=== PATIENT | male | born 1975 | race Caucasian/White ===

== ENCOUNTER 2018-03-22 04:14 | Emergency (ER) | payer OTHER ==
[2018-03-22 04:29] VITALS: RESP 20; O2SAT 98
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
[2018-03-22 06:39] VITALS: BP 141/93; PULSE 78; TEMP 97
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
== END 2018-03-22 07:20 | disposition left against medical advice (07) ==
LOC: C.ER 04:14
DX: S02.2XXA Fracture of nasal bones, initial encounter for closed fracture (principal); S62.337A Displaced fracture of neck of fifth metacarpal bone, left hand, initial encounter for closed fracture; Y04.0XXA Assault by unarmed brawl or fight, initial encounter

== ENCOUNTER 2018-03-23 09:32 | Emergency (ER) | payer OTHER ==
[2018-03-23 09:42] VITALS: O2SAT 98
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
[2018-03-23] MEDS ORDERED: Oxycodone/Acetaminophen 5/325 mg Tab PO STA (11:02)
[2018-03-23] MEDS ORDERED: Oxycodone/Acetaminophen 5/325 mg Tab ONE (11:09)
[2018-03-23 11:21] VITALS: BP 138/84; PULSE 87; RESP 18; TEMP 98.6
== END 2018-03-23 11:21 | disposition home or self-care (01) ==
LOC: C.ER 09:32
DX: S62.339A Displaced fracture of neck of unspecified metacarpal bone, initial encounter for closed fracture (principal); X58.XXXA Exposure to other specified factors, initial encounter

== ENCOUNTER 2018-04-07 08:26 | Day surgery (SDC) | payer SELFPAY ==
[2018-04-03 14:12] VITALS: BMI 21.8
[2018-04-07] MEDS ORDERED: Propofol 10 mg/ml Inj (20 ML) ONE ×2 (11:06→12:26)
[2018-04-07] MEDS ORDERED: Midazolam 2 MG/2 ML VIAL ONE ×3 (11:08→12:41)
[2018-04-07] MEDS ORDERED: Bupivacaine HCl 0.5% PF (30 ml) Inj ONE (11:13)
[2018-04-07] MEDS ORDERED: Lidocaine 1% 20 MG/2 ML PF AMP ONE (11:13)
[2018-04-07] MEDS ORDERED: ceFAZolin 1 gm in NS 1 GM/100 ML BAG IVPB ONE (11:13)
[2018-04-07] MEDS ORDERED: HYDROmorphone 0.5 mg/0.5 ml ISec IVP PRN (13:17)
--- NOTE | 2018-04-07 13:44 | PCM.SURG1 ---
Surgeon's Initial Post Op Note - Surgeon's Notes Surgeon: Dr. Licea Supervisor Whipped Topping: Maria Guadalupe SINGHY2, Holly TILLEY Type of Anesthesia: Block Regional, IV Sedation Anesthesia Administered By: Joselyn DANIEL Pre-Operative Diagnosis: L 5th metacarpal fracture Operative Findings: L 5th metacarpal fracture Post-Operative Diagnosis: L 5th metacarpal fracture Operation Performed: K-wire fixation of L 5th metacarpal fracture Specimen/Specimens Removed: N/A Estimated Blood Loss: EBL {In ML}: 5 Blood Products Given: N/A Drains Used: No Drains Post-Op Condition: Good Date of Surgery/Procedure: 04/07/18 Time of Surgery/Procedure: 13:44
[2018-04-07 16:15] VITALS: TEMP 97.8; O2SAT 96
[2018-04-07 17:04] VITALS: BP 114/73; PULSE 77; RESP 20
--- NOTE | 2018-04-21 05:01 | OP ---
PROCEDURE DATE: 04/07/2018 SURGEON: Tiny Licea MD LAPEL PADDER: Luis Lerma DO, PGY-2 PREOPERATIVE DIAGNOSIS: Right small finger metacarpal neck/shaft fracture. POSTOPERATIVE DIAGNOSIS: Right small finger metacarpal neck/shaft fracture. TYPE OF ANESTHESIA: Block by operating surgeon and sedation. COUNTS: Lap, sponge, needle counts were correct at the end of the case. CONDITION: The patient was stable upon discharge to recovery. PROCEDURE: Closed reduction and K-wire fixation of left small finger metacarpal neck/shaft fracture. INDICATIONS FOR SURGERY: The patient is a 43-year-old male with a metacarpal neck fracture which borders on the neck/shaft level making it unstable. Attempts of reduction in the office and repositioning were attempted. Position did improve somewhat after the manipulation; however, not enough, and decision was made with the patient to go to operating room for more formal repositioning of the fracture. DESCRIPTION OF PROCEDURE: The patient was identified in the holding area. The left arm was marked. He was then brought into the operating room and laid supine on the operating room table. Once sedation was provided, the left wrist was blocked using 10 mL of 1% lidocaine and 0.5% Marcaine in a 50:50 mixture. The median nerve, radial nerve, ulnar sensory, and ulnar nerves were blocked at the wrist. The arm was then prepped and draped in a usual sterile fashion. Without inflating the tourniquet or exsanguination, the fracture was manipulated in order to bring it up to length. Then using intraoperative fluoroscopy, K-wires were placed across the metacarpal head into the ring finger metacarpal head as well as some of the metacarpal head into the small finger metacarpal shaft. The position was checked in all three views, and once adequate, the K-wires were bent, trimmed, and capped with Jurgan balls. The small finger was then wrapped with Xeroform around the pin site. 4 x 4 gauze, Kerlix, Webril, and ulnar gutter splint were as then applied and secured in place with an Checo wrap. The patient tolerated the procedure well, was transferred to a stretcher and brought to recovery in stable condition. Tiny Licea MD [facility] # [id number]
== END 2018-04-07 16:40 | disposition home or self-care (01) ==
LOC: C.SDS 08:26
PROVIDERS: ATTEND Plastic Surgery Surgery of the Hand
DX: S62.317A Displaced fracture of base of fifth metacarpal bone, left hand, initial encounter for closed fracture (principal); X58.XXXA Exposure to other specified factors, initial encounter
CPT/HCPCS: 26615; C1769; J0690; J1170; J2175; J2250; J2704; J3010